=== PATIENT | male | born 1985 | race Two or more races ===

== ENCOUNTER → 2022-09-16 11:17 | Outpatient (CLI) | payer OTHER | END | disposition home or self-care (01) | LOC: LAB 11:17 | PROVIDERS: ATTEND Obstetrics & Gynecology | DX: Z20.818 Contact with and (suspected) exposure to other bacterial communicable diseases (principal); Z20.828 Contact with and (suspected) exposure to other viral communicable diseases ==

== ENCOUNTER 2025-09-27 11:05 | Emergency (ER) | payer OTHER ==
[~2025-09-27] VITALS: Ht 188 cm; Wt 85.7 kg
[2025-09-27] MEDS ORDERED: ZESTRIL10 M1 (12:35)
[2025-09-27] MEDS ORDERED: 0.9 % SODIUM CHLORIDE 1,000 ML IV STA (12:43)
[2025-09-27] MEDS ORDERED: DEXAMETHASONE SODIUM PHOSPHATE 4 MG/ML VIAL IM STA (12:43)
[2025-09-27] MEDS ORDERED: FAMOTIDINE/PF 20 MG/2 ML VIAL IV STA (12:43)
[2025-09-27] MEDS ORDERED: CEFTRIAXONE SODIUM 1,000 MG VIAL IV ONE (12:45)
[2025-09-27] MEDS ORDERED: CEFTRIAXONE SODIUM 1,000 MG VIAL ONE (13:09)
[2025-09-27] MEDS ORDERED: FAMOTIDINE/PF 20 MG/2 ML VIAL ONE (13:09)
[2025-09-27] MEDS ORDERED: DEXAMETHASONE SODIUM PHOSPHATE 4 MG/ML VIAL ONE (13:09)
[2025-09-27 16:25] LABS: BASO % 0.4 % (0.1-1.2); EOS # 0.02 (0.04-0.54); EOS % 0.2 % (0.7-7.0); LYMPH # 1.03 (1.18-3.74); LYMPH % 10.8 % (19.3-53.1); MEAN PLATELET VOLUME 9.20 fl (9.4-12.4); MONO # 0.33 (0.24-0.82); MONO % 3.5 % (4.7-12.5); NEUT # 8.11 (1.56-6.13); NEUT % 84.9 % (34.0-71.1); RED CELL DISTRIBUTION WIDTH 12.5 % (11.6-14.4)
[2025-09-27 16:28] LABS: ERYTHROCYTE SEDIMENTATION RATE 9 mm/hr (0-15)
[2025-09-27 16:46] LABS: INR 1.04
[2025-09-27 16:47] LABS: BUN CREA RATIO 14.0 (7.0-25.0); CREATININE SERUM 0.71 mg/dL (0.70-1.30); GFR 124.16; GLUCOSE FASTING 96.0 mg/dL (65-100); OSMOLALITY SERUM 280.0 MOSM/KG (275-295)
[2025-09-27] MEDS ORDERED: AMOX-CLAV 875-1 EACH PO (17:42)
[2025-09-27] MEDS ORDERED: IBU600 MG PO (17:42)
[2025-09-27] MEDS ORDERED: INTESTINEX680 M1 PO (17:42)
[2025-09-27] MEDS ORDERED: PEPCID AC20 MG PO (17:42)
== END 2025-09-27 17:49 | disposition home or self-care (01) ==
LOC: ER 11:06
PROVIDERS: General Practice
DX: L03.116 Cellulitis of left lower limb (principal); I87.2 Venous insufficiency (chronic) (peripheral); I10 Essential (primary) hypertension; Z91.013 Allergy to seafood